=== PATIENT | male | born 1935 | race Two or more races ===

== ENCOUNTER 2018-03-17 18:17 | Inpatient (IN) | payer OTHER, MEDICAID ==
[2018-03-17 22:12] LABS: ADD MAN DIFF? NO
[2018-03-17 22:14] LABS: WHITE BLOOD COUNT 7.7 10^3/ul (4.8-10.8)
[2018-03-17 22:14] LABS: BASOPHIL # 0.1 10^3/ul (0.0-0.1); BASOPHILS % 0.6 % (0.0-2.0); EOSINOPHILS # 0.3 10^3/ul (0.0-0.5); EOSINOPHILS % 3.4 % (0.0-7.0); HEMATOCRIT 45.9 % (42.0-52.0); HEMOGLOBIN 14.7 g/dl (14.0-18.0); LYMPHOCYTES # 1.8 10^3/ul (0.8-2.9); LYMPHOCYTES % 23.5 % (15.0-51.0); MEAN CORPUSCULAR HEMOGLOBIN 26.4 pg (29.0-33.0); MEAN CORPUSCULAR VOLUME 82.6 fl (82.0-101.0); MEAN PLATELET VOLUME 9.8 fl (7.4-10.4); MONOCYTE # 0.8 10^3/ul (0.3-0.9); MONOCYTES % 10.1 % (0.0-11.0); NEUTROPHIL # 4.8 10^3/ul (1.6-7.5); NEUTROPHILS % 62.1 % (39.0-77.0); PLATELET COUNT 204 10^3/UL (140-415); RED BLOOD COUNT 5.56 10^6/ul (4.70-6.10); RED CELL DISTRIBUTION WIDTH 13.3 % (11.5-14.5)
[2018-03-17 22:27] LABS: AADO2 Arterial 32.1 mmHg (7.0-24.0); Allen Test ACCEPTAB; Arterial Base Excess 6.6 mmol/L (-3.0-3); Arterial Blood Gas Oxygen Sat 88.7 mmHG (95.0-100.0); Arterial Fraction of Oxyhgb 87.5 % (93.0-99.0); Arterial HCO3 33.2 mmol/L (22.0-26.0); Arterial MetHb 0.3 % (0.0-1.5); Arterial Total Hemglobin 15.8 g/dl (12.0-18.0); Arterial pCO2 54.4 mmhg (35-45); MODE ROOM AIR; Site Right Radial
[2018-03-17] MEDS: METHYLPREDNISOLONE 125 MG INJ IV (22:29)
[2018-03-17 22:33] LABS: ALANINE AMINOTRANSFERASE 13 IU/L (13-69); ALBUMIN 3.9 g/dl (3.3-4.9); ALKALINE PHOSPHATASE 127 IU/L (42-121); ANION GAP 9 (5-13); ASPARTATE AMINO TRANSFERASE 25 IU/L (15-46); BILIRUBIN,INDIRECT 0.4 mg/dl (0-1.1); BILIRUBIN,TOTAL 0.4 mg/dl (0.2-1.3); BLOOD UREA NITROGEN 26 mg/dl (7-20); CALCIUM 9.2 mg/dl (8.4-10.2); CARBON DIOXIDE 33 mmol/L (21-31); CHLORIDE 97 mmol/L (97-110); CREATININE 1.28 mg/dl (0.61-1.24); GLUCOSE 272 mg/dl (70-220); INR 0.91; LIPASE 84 U/L (23-300); POTASSIUM 4.5 mmol/L (3.5-5.1); PROTIME 12.3 Sec (11.9-14.9); SODIUM 139 mmol/L (135-144); TOTAL PROTEIN 7.8 g/dl (6.1-8.1)
[2018-03-17 22:34] LABS: PARTIAL THROMBOPLASTIN TIME 34.4 Sec (23.0-35.0)
[2018-03-17 22:44] LABS: B-TYPE NATRIURETIC PEPTIDE 239 PG/ML (0-450); TROPONIN-I < 0.012 ng/ml (0.000-0.120)
[2018-03-17] MEDS: ALBUTEROL 0.5% (NEB) 2.5 MG/0.5 ML AMP INH (22:44)
[2018-03-17] MEDS: IPRATROPIUM (NEB) 0.5 MG/2.5 ML AMP INH (22:45)
[2018-03-18] MEDS: ENALAPRILAT 1.25 MG INJ IV (00:13)
[2018-03-18 01:00] LABS: ADD UMIC YES; UR ASCORBIC ACID NEGATIVE (NEGATIVE); UR BACTERIA MODERATE /HPF (NONE SEEN); UR BILIRUBIN (Dip) NEGATIVE (NEGATIVE); UR BLOOD (Dip) NEGATIVE (NEGATIVE); UR CLARITY SLIGHTLY CLOUDY (CLEAR); UR COLOR YELLOW (YELLOW); UR GLUCOSE (Dip) NEGATIVE (NEGATIVE); UR KETONES (Dip) NEGATIVE (NEGATIVE); UR LEUKOCYTE ESTERASE (Dip) 1+ Leu/ul (NEGATIVE); UR NITRITE (Dip) NEGATIVE (NEGATIVE); UR RBC 2 /HPF (0-5); UR SPECIFIC GRAVITY (Dip) 1.015 (1.003-1.030); UR TOTAL PROTEIN (Dip) 2+ mg/dl (NEGATIVE); UR UROBILINOGEN (Dip) 2+ mg/dL (NEGATIVE); UR WBC 34 /HPF (0-5)
[2018-03-18] MEDS: hydrALAzine 20 MG INJ IV (03:54)
[2018-03-18] MEDS ORDERED: NACL 0.9% 3 ML SYG IV (04:00)
[2018-03-18] MEDS ORDERED: ALBUTEROL/IPRATROPIUM (NEB) 3 ML AMP HHN (04:00)
[2018-03-18] MEDS ORDERED: ONDANSETRON 4 MG INJ IV (04:00)
[2018-03-18 05:48] LABS: ABNORMAL IP MESSAGE 1; HEMATOCRIT 46.1 % (42.0-52.0); HEMOGLOBIN 14.7 g/dl (14.0-18.0); MEAN CORPUSCULAR HEMOGLOBIN 26.3 pg (29.0-33.0); MEAN CORPUSCULAR HGB CONC 31.9 g/dl (32.0-37.0); MEAN CORPUSCULAR VOLUME 82.5 fl (82.0-101.0); MEAN PLATELET VOLUME 9.6 fl (7.4-10.4); PLATELET COUNT 206 10^3/UL (140-415); POSITIVE DIFF @See below; RED BLOOD COUNT 5.59 10^6/ul (4.70-6.10)
[2018-03-18 05:48] LABS: WHITE BLOOD COUNT 7.7 10^3/ul (4.8-10.8)
[2018-03-18 05:58] LABS: ADD MAN DIFF? YES
[2018-03-18 06:27] LABS: ALANINE AMINOTRANSFERASE 12 IU/L (13-69); ALBUMIN 3.4 g/dl (3.3-4.9); ALBUMIN/GLOBULIN RATIO 0.89; ALKALINE PHOSPHATASE 138 IU/L (42-121); ANION GAP 16 (5-13); ASPARTATE AMINO TRANSFERASE 33 IU/L (15-46); BILIRUBIN,INDIRECT 0.3 mg/dl (0-1.1); BILIRUBIN,TOTAL 0.3 mg/dl (0.2-1.3); BLOOD UREA NITROGEN 27 mg/dl (7-20); CARBON DIOXIDE 27 mmol/L (21-31); CHLORIDE 97 mmol/L (97-110); CREATININE 1.04 mg/dl (0.61-1.24); MAGNESIUM 1.6 mg/dl (1.7-2.5); SODIUM 140 mmol/L (135-144); TOTAL PROTEIN 7.2 g/dl (6.1-8.1)
[2018-03-18 06:39] LABS: GLUCOSE 407 mg/dl (70-220)
[2018-03-18 07:25] LABS: ANISOCYTOSIS 1+ (0-0); BAND NEUTROPHILS #M 0.4 10^3/ul (0.0-0.6); BAND NEUTROPHILS % (M) 6 % (0-4); BASOPHILS % (M) 1 % (0-2); LYMPHOCYTES #M 0.2 10^3/ul (0.8-2.9); LYMPHOCYTES % (M) 3 % (15-51); MICROCYTOSIS 1+ (0-0); MONOCYTES % (M) 1 % (0-11); PLATELET ESTIMATE NORMAL; POLYCHROMASIA 1+ (0-0); REACTIVE LYMPHOCYTES% (M) 1 % (0-0); SEG NEUT #M 6.8 10^3/ul (1.6-7.5); SEGMENTED NEUTROPHILS (M) % 88 % (39-77); SMUDGE%M 19 % (0-0)
[2018-03-18] MEDS ORDERED: HEPARIN 5,000 UNIT/0.5 ML VIAL (08:13)
[2018-03-18] MEDS: METHYLPREDNISOLONE 125 MG INJ IV (08:20)
[2018-03-18] MEDS: AMLODIPINE 10 MG TAB PO (08:21)
[2018-03-18] MEDS: MOMETASONE 0.24 GM INHALER INH ×2 (08:21→20:45)
[2018-03-18] MEDS: HEPARIN 5,000 UNIT/1 ML VIAL SC (08:25)
[2018-03-18] MEDS: INSULIN ASPART [NOVOLOG] 3 ML PEN SC ×4 (08:26→20:44)
[2018-03-18] MEDS ORDERED: ENOXAPARIN 100 MG/ML SYG SC (09:30)
[2018-03-18] MEDS: MAGNESIUM SULFATE 2 GM/50 ML 50 ML IVPB (09:37)
[2018-03-18] MEDS: ASPIRIN 325 MG TAB PO (09:37)
[2018-03-18] MEDS ORDERED: ENALAPRILAT 1.25 MG INJ IV (12:00)
[2018-03-18] MEDS: LABETALOL 100 MG TAB PO ×2 (12:26→20:27)
[2018-03-18] MEDS: CLONIDINE 0.2 MG/24 HR PATCH TRANSDERM (12:27)
[2018-03-18] MEDS ORDERED: GLUCOSE GEL 15 GRAM TUBE PO ×2 (12:30)
[2018-03-18] MEDS ORDERED: DEXTROSE 50% 50 ML SYRINGE IV ×2 (12:30)
[2018-03-18] MEDS ORDERED: GLUCOSE GEL 15 GRAM TUBE BUCCAL (12:30)
[2018-03-18] MEDS ORDERED: GLUCAGON 1 MG INJ IM (12:30)
[2018-03-18] MEDS: IPRATROPIUM (HFA) 12.9 GM INHALER INH ×3 (14:00→20:00)
[2018-03-18] MEDS: IOHEXOL 300MG/ML 150 ML BTL (17:09)
[2018-03-18] MEDS: SOD CHLORIDE 0.9% 100 ML (17:09)
[2018-03-18] MEDS: ATORVASTATIN 20 MG TAB PO (20:27)
[2018-03-18] MEDS: INSULIN GLARGINE [LANTus] (100 UNITS/ML) SYG SC (20:45)
[2018-03-18] MEDS: ENOXAPARIN 100 MG/ML SYG SC (20:45)
[2018-03-19] MEDS: LORAZEPAM 2 MG INJ IV (00:11)
[2018-03-19] MEDS ORDERED: DIPHENHYDRAMINE 50 MG INJ (00:37)
[2018-03-19] MEDS: HALOPERIDOL 5 MG INJ IM (00:44)
[2018-03-19] MEDS: DIPHENHYDRAMINE 50 MG INJ IV (01:03)
[2018-03-19] MEDS: IPRATROPIUM (HFA) 12.9 GM INHALER INH ×4 (01:59→20:00)
[2018-03-19] MEDS: ACCU-CHEK XX (02:19)
[2018-03-19] MEDS: INSULIN ASPART [NOVOLOG] 3 ML PEN SC ×5 (02:19→21:30)
[2018-03-19 06:18] LABS: WHITE BLOOD COUNT 16.1 10^3/ul (4.8-10.8)
[2018-03-19 06:18] LABS: ADD MAN DIFF? NO; BASOPHILS % 0.1 % (0.0-2.0); EOSINOPHILS % 0.1 % (0.0-7.0); HEMATOCRIT 42.2 % (42.0-52.0); HEMOGLOBIN 13.8 g/dl (14.0-18.0); LYMPHOCYTES % 6.5 % (15.0-51.0); MEAN CORPUSCULAR HEMOGLOBIN 26.7 pg (29.0-33.0); MEAN CORPUSCULAR HGB CONC 32.7 g/dl (32.0-37.0); MEAN CORPUSCULAR VOLUME 81.6 fl (82.0-101.0); MEAN PLATELET VOLUME 9.9 fl (7.4-10.4); MONOCYTE # 1.1 10^3/ul (0.3-0.9); MONOCYTES % 6.6 % (0.0-11.0); NEUTROPHIL # 13.9 10^3/ul (1.6-7.5); NEUTROPHILS % 86.1 % (39.0-77.0); PLATELET COUNT 218 10^3/UL (140-415); RED BLOOD COUNT 5.17 10^6/ul (4.70-6.10); RED CELL DISTRIBUTION WIDTH 13.4 % (11.5-14.5)
[2018-03-19 06:34] LABS: HEMOGLOBIN A1C 8.6 % (0-5.9)
[2018-03-19 06:36] LABS: INR 0.99; PROTIME 13.2 Sec (11.9-14.9)
[2018-03-19 06:54] LABS: ALANINE AMINOTRANSFERASE 20 IU/L (13-69); ALBUMIN 3.1 g/dl (3.3-4.9); ALBUMIN/GLOBULIN RATIO 0.93; ALKALINE PHOSPHATASE 109 IU/L (42-121); ANION GAP 11 (5-13); ASPARTATE AMINO TRANSFERASE 30 IU/L (15-46); BILIRUBIN,INDIRECT 0.1 mg/dl (0-1.1); BILIRUBIN,TOTAL 0.1 mg/dl (0.2-1.3); BLOOD UREA NITROGEN 39 mg/dl (7-20); CALCIUM 9.1 mg/dl (8.4-10.2); CARBON DIOXIDE 29 mmol/L (21-31); CHLORIDE 101 mmol/L (97-110); CREATININE 1.15 mg/dl (0.61-1.24); GLUCOSE 297 mg/dl (70-220); POTASSIUM 4.4 mmol/L (3.5-5.1); SODIUM 141 mmol/L (135-144); TOTAL PROTEIN 6.4 g/dl (6.1-8.1)
[2018-03-19 07:10] LABS: PHOSPHORUS 3.5 mg/dl (2.5-4.9)
[2018-03-19 07:10] LABS: MAGNESIUM 2.2 mg/dl (1.7-2.5)
[2018-03-19] MEDS: METHYLPREDNISOLONE 125 MG INJ IV (08:47)
[2018-03-19] MEDS: ASPIRIN 325 MG TAB PO (08:48)
[2018-03-19] MEDS: LABETALOL 100 MG TAB PO ×2 (08:49→21:22)
[2018-03-19] MEDS: MOMETASONE 0.24 GM INHALER INH ×2 (08:51→21:22)
[2018-03-19] MEDS: INSULIN GLARGINE [LANTus] (100 UNITS/ML) SYG SC ×2 (09:19→21:26)
[2018-03-19] MEDS: ENOXAPARIN 100 MG/ML SYG SC (09:19)
[2018-03-19] MEDS ORDERED: METHYLPREDNISOLONE (MEDROL) DOSE PACK PO (14:30)
[2018-03-19] MEDS: LEVOFLOXACIN 500 MG TAB PO (17:02)
[2018-03-19] MEDS: METHYLPREDNISOLONE 4 MG TAB PO (17:03)
[2018-03-19] MEDS: SENNA/DOCUSATE NA (8.6MG/50MG) TAB PO (17:03)
[2018-03-19] MEDS: ATORVASTATIN 20 MG TAB PO (21:21)
[2018-03-20] MEDS: ACCU-CHEK XX (02:00)
[2018-03-20] MEDS: IPRATROPIUM (HFA) 12.9 GM INHALER INH ×4 (02:00→20:16)
[2018-03-20] MEDS: LEVOFLOXACIN 500 MG TAB PO (06:12)
[2018-03-20] MEDS: METHYLPREDNISOLONE 4 MG TAB PO ×4 (06:13→20:30)
[2018-03-20 06:28] LABS: ADD MAN DIFF? NO
[2018-03-20 06:33] LABS: BASOPHILS % 0.1 % (0.0-2.0); HEMATOCRIT 41.9 % (42.0-52.0); HEMOGLOBIN 13.7 g/dl (14.0-18.0); LYMPHOCYTES # 0.9 10^3/ul (0.8-2.9); LYMPHOCYTES % 5.4 % (15.0-51.0); MEAN CORPUSCULAR HGB CONC 32.7 g/dl (32.0-37.0); MEAN CORPUSCULAR VOLUME 82.5 fl (82.0-101.0); MEAN PLATELET VOLUME 10.2 fl (7.4-10.4); MONOCYTE # 0.7 10^3/ul (0.3-0.9); MONOCYTES % 4.3 % (0.0-11.0); NEUTROPHIL # 14.4 10^3/ul (1.6-7.5); NEUTROPHILS % 89.6 % (39.0-77.0); PLATELET COUNT 231 10^3/UL (140-415); RED BLOOD COUNT 5.08 10^6/ul (4.70-6.10); RED CELL DISTRIBUTION WIDTH 13.6 % (11.5-14.5)
[2018-03-20 07:15] LABS: ALANINE AMINOTRANSFERASE 17 IU/L (13-69); ALBUMIN/GLOBULIN RATIO 0.88; ALKALINE PHOSPHATASE 90 IU/L (42-121); ANION GAP 8 (5-13); ASPARTATE AMINO TRANSFERASE 25 IU/L (15-46); BILIRUBIN,INDIRECT 0.1 mg/dl (0-1.1); BILIRUBIN,TOTAL 0.1 mg/dl (0.2-1.3); BLOOD UREA NITROGEN 47 mg/dl (7-20); CALCIUM 9.1 mg/dl (8.4-10.2); CARBON DIOXIDE 32 mmol/L (21-31); CHLORIDE 101 mmol/L (97-110); CREATININE 1.05 mg/dl (0.61-1.24); GLUCOSE 190 mg/dl (70-220); POTASSIUM 4.7 mmol/L (3.5-5.1); SODIUM 141 mmol/L (135-144); TOTAL PROTEIN 6.4 g/dl (6.1-8.1)
[2018-03-20] MEDS: INSULIN GLARGINE [LANTus] (100 UNITS/ML) SYG SC ×3 (08:07→20:34)
[2018-03-20] MEDS: INSULIN ASPART [NOVOLOG] 3 ML PEN SC ×4 (08:08→20:15)
[2018-03-20] MEDS: ASPIRIN 325 MG TAB PO (09:15)
[2018-03-20] MEDS: LABETALOL 100 MG TAB PO ×2 (09:15→20:15)
[2018-03-20] MEDS: SENNA/DOCUSATE NA (8.6MG/50MG) TAB PO (09:15)
[2018-03-20] MEDS: MOMETASONE 0.24 GM INHALER INH ×2 (09:17→20:16)
[2018-03-20] MEDS: ENOXAPARIN 30 MG/0.3 ML SYG SC (09:22)
[2018-03-20] MEDS: ATORVASTATIN 20 MG TAB PO (20:15)
[2018-03-21] MEDS: ACCU-CHEK XX (02:00)
[2018-03-21] MEDS: IPRATROPIUM (HFA) 12.9 GM INHALER INH ×3 (02:00→17:48)
[2018-03-21] MEDS: LEVOFLOXACIN 500 MG TAB PO (06:18)
[2018-03-21] MEDS: METHYLPREDNISOLONE 4 MG TAB PO ×4 (06:18→20:46)
[2018-03-21] MEDS: SENNA/DOCUSATE NA (8.6MG/50MG) TAB PO (08:02)
[2018-03-21] MEDS: ASPIRIN 325 MG TAB PO (08:02)
[2018-03-21] MEDS: MOMETASONE 0.24 GM INHALER INH ×2 (08:03→20:46)
[2018-03-21] MEDS: LABETALOL 100 MG TAB PO ×2 (08:03→20:47)
[2018-03-21] MEDS: ENOXAPARIN 30 MG/0.3 ML SYG SC (08:10)
[2018-03-21] MEDS: INSULIN ASPART [NOVOLOG] 3 ML PEN SC ×4 (08:10→20:49)
[2018-03-21] MEDS: ATORVASTATIN 20 MG TAB PO (20:46)
[2018-03-21] MEDS: INSULIN GLARGINE [LANTus] (100 UNITS/ML) SYG SC (20:49)
[2018-03-22] MEDS: ACCU-CHEK XX (01:48)
[2018-03-22] MEDS: IPRATROPIUM (HFA) 12.9 GM INHALER INH ×5 (02:00→22:06)
[2018-03-22 06:06] LABS: ADD MAN DIFF? NO
[2018-03-22] MEDS: METHYLPREDNISOLONE 4 MG TAB PO ×3 (06:10→22:04)
[2018-03-22] MEDS: LEVOFLOXACIN 500 MG TAB PO (06:10)
[2018-03-22 06:15] LABS: WHITE BLOOD COUNT 9.1 10^3/ul (4.8-10.8)
[2018-03-22 06:15] LABS: BASOPHILS % 0.1 % (0.0-2.0); EOSINOPHILS # 0.2 10^3/ul (0.0-0.5); EOSINOPHILS % 1.7 % (0.0-7.0); HEMATOCRIT 44.7 % (42.0-52.0); HEMOGLOBIN 14.6 g/dl (14.0-18.0); LYMPHOCYTES # 1.5 10^3/ul (0.8-2.9); LYMPHOCYTES % 16.3 % (15.0-51.0); MEAN CORPUSCULAR HGB CONC 32.7 g/dl (32.0-37.0); MEAN CORPUSCULAR VOLUME 82.8 fl (82.0-101.0); MONOCYTE # 0.9 10^3/ul (0.3-0.9); MONOCYTES % 9.4 % (0.0-11.0); NEUTROPHIL # 6.5 10^3/ul (1.6-7.5); NEUTROPHILS % 71.9 % (39.0-77.0); PLATELET COUNT 201 10^3/UL (140-415)
[2018-03-22 06:41] LABS: ANION GAP 8 (5-13); BLOOD UREA NITROGEN 37 mg/dl (7-20); CALCIUM 9.1 mg/dl (8.4-10.2); CARBON DIOXIDE 32 mmol/L (21-31); CHLORIDE 99 mmol/L (97-110); CREATININE 1.06 mg/dl (0.61-1.24); GLUCOSE 150 mg/dl (70-220); POTASSIUM 4.4 mmol/L (3.5-5.1); SODIUM 139 mmol/L (135-144)
[2018-03-22 06:55] LABS: PHOSPHORUS 4.8 mg/dl (2.5-4.9)
[2018-03-22 06:55] LABS: MAGNESIUM 2.1 mg/dl (1.7-2.5)
[2018-03-22] MEDS: INSULIN ASPART [NOVOLOG] 3 ML PEN SC ×4 (07:57→21:00)
[2018-03-22] MEDS: MOMETASONE 0.24 GM INHALER INH ×2 (08:12→22:06)
[2018-03-22] MEDS: ASPIRIN 325 MG TAB PO (08:12)
[2018-03-22] MEDS: LABETALOL 100 MG TAB PO ×2 (08:13→22:04)
[2018-03-22] MEDS: SENNA/DOCUSATE NA (8.6MG/50MG) TAB PO (08:13)
[2018-03-22] MEDS: ENOXAPARIN 30 MG/0.3 ML SYG SC (08:21)
[2018-03-22] MEDS: INSULIN GLARGINE [LANTus] (100 UNITS/ML) SYG SC (20:00)
[2018-03-22] MEDS: ATORVASTATIN 20 MG TAB PO (22:04)
[2018-03-23] MEDS: ACCU-CHEK XX (02:00)
[2018-03-23] MEDS: IPRATROPIUM (HFA) 12.9 GM INHALER INH ×4 (02:00→20:51)
[2018-03-23] MEDS: LEVOFLOXACIN 500 MG TAB PO (06:31)
[2018-03-23] MEDS: METHYLPREDNISOLONE 4 MG TAB PO ×2 (06:31→20:51)
[2018-03-23] MEDS: INSULIN ASPART [NOVOLOG] 3 ML PEN SC ×4 (07:53→21:07)
[2018-03-23] MEDS: MOMETASONE 0.24 GM INHALER INH ×2 (08:18→20:50)
[2018-03-23] MEDS: SENNA/DOCUSATE NA (8.6MG/50MG) TAB PO (08:19)
[2018-03-23] MEDS: ASPIRIN 325 MG TAB PO (08:19)
[2018-03-23] MEDS: LABETALOL 100 MG TAB PO ×2 (08:20→20:53)
[2018-03-23] MEDS: ENOXAPARIN 30 MG/0.3 ML SYG SC (08:26)
[2018-03-23] MEDS: BISACODYL (EC) 5 MG TAB PO (19:03)
[2018-03-23] MEDS: MAGNESIUM HYDROXIDE 30ML CUP PO (19:03)
[2018-03-23] MEDS: ATORVASTATIN 20 MG TAB PO (20:51)
[2018-03-23] MEDS: INSULIN GLARGINE [LANTus] (100 UNITS/ML) SYG SC (21:07)
[2018-03-24] MEDS: ACCU-CHEK XX (02:00)
[2018-03-24] MEDS: IPRATROPIUM (HFA) 12.9 GM INHALER INH ×4 (02:12→20:09)
[2018-03-24] MEDS: LEVOFLOXACIN 500 MG TAB PO (05:43)
[2018-03-24 06:21] LABS: ADD MAN DIFF? NO
[2018-03-24 06:33] LABS: WHITE BLOOD COUNT 9.5 10^3/ul (4.8-10.8)
[2018-03-24 06:33] LABS: BASOPHILS % 0.2 % (0.0-2.0); EOSINOPHILS # 0.3 10^3/ul (0.0-0.5); HEMATOCRIT 46.5 % (42.0-52.0); HEMOGLOBIN 14.8 g/dl (14.0-18.0); LYMPHOCYTES # 2.1 10^3/ul (0.8-2.9); LYMPHOCYTES % 21.7 % (15.0-51.0); MEAN CORPUSCULAR HEMOGLOBIN 26.5 pg (29.0-33.0); MEAN CORPUSCULAR HGB CONC 31.8 g/dl (32.0-37.0); MEAN CORPUSCULAR VOLUME 83.3 fl (82.0-101.0); MEAN PLATELET VOLUME 9.9 fl (7.4-10.4); MONOCYTES % 10.6 % (0.0-11.0); NEUTROPHILS % 63.3 % (39.0-77.0); PLATELET COUNT 211 10^3/UL (140-415); RED BLOOD COUNT 5.58 10^6/ul (4.70-6.10); RED CELL DISTRIBUTION WIDTH 13.8 % (11.5-14.5)
[2018-03-24 06:51] LABS: ANION GAP 9 (5-13); BLOOD UREA NITROGEN 41 mg/dl (7-20); CALCIUM 8.7 mg/dl (8.4-10.2); CARBON DIOXIDE 31 mmol/L (21-31); CHLORIDE 101 mmol/L (97-110); CREATININE 1.11 mg/dl (0.61-1.24); GLUCOSE 98 mg/dl (70-220); MAGNESIUM 2.2 mg/dl (1.7-2.5); PHOSPHORUS 4.4 mg/dl (2.5-4.9); POTASSIUM 3.8 mmol/L (3.5-5.1); SODIUM 141 mmol/L (135-144)
[2018-03-24] MEDS: INSULIN ASPART [NOVOLOG] 3 ML PEN SC ×4 (08:00→21:00)
[2018-03-24] MEDS: METHYLPREDNISOLONE 4 MG TAB PO (08:59)
[2018-03-24] MEDS: ASPIRIN 325 MG TAB PO (09:00)
[2018-03-24] MEDS: LABETALOL 100 MG TAB PO ×2 (09:00→21:28)
[2018-03-24] MEDS: SENNA/DOCUSATE NA (8.6MG/50MG) TAB PO (09:00)
[2018-03-24] MEDS: MOMETASONE 0.24 GM INHALER INH ×2 (09:01→21:31)
[2018-03-24] MEDS: ENOXAPARIN 30 MG/0.3 ML SYG SC (09:03)
[2018-03-24] MEDS: INSULIN GLARGINE [LANTus] (100 UNITS/ML) SYG SC (20:08)
[2018-03-24] MEDS: ATORVASTATIN 20 MG TAB PO (21:28)
[2018-03-25] MEDS: ACCU-CHEK XX (02:00)
[2018-03-25] MEDS: IPRATROPIUM (HFA) 12.9 GM INHALER INH ×4 (02:27→20:05)
[2018-03-25] MEDS: LEVOFLOXACIN 500 MG TAB PO (05:41)
[2018-03-25] MEDS: INSULIN ASPART [NOVOLOG] 3 ML PEN SC ×4 (08:00→21:00)
[2018-03-25] MEDS: MOMETASONE 0.24 GM INHALER INH ×2 (08:34→21:00)
[2018-03-25] MEDS: ASPIRIN 325 MG TAB PO (08:35)
[2018-03-25] MEDS: SENNA/DOCUSATE NA (8.6MG/50MG) TAB PO (08:35)
[2018-03-25] MEDS: ENOXAPARIN 30 MG/0.3 ML SYG SC (08:37)
[2018-03-25] MEDS: ACETAMINOPHEN 325 MG TAB PO (08:42)
[2018-03-25] MEDS: LABETALOL 100 MG TAB PO ×2 (08:42→21:01)
[2018-03-25] MEDS: CLONIDINE 0.2 MG/24 HR PATCH TRANSDERM (12:07)
[2018-03-25] MEDS: INSULIN GLARGINE [LANTus] (100 UNITS/ML) SYG SC (20:07)
[2018-03-25] MEDS: ATORVASTATIN 20 MG TAB PO (21:00)
[2018-03-26] MEDS: ACCU-CHEK XX (02:00)
[2018-03-26] MEDS: IPRATROPIUM (HFA) 12.9 GM INHALER INH ×4 (02:07→20:21)
[2018-03-26] MEDS: LEVOFLOXACIN 500 MG TAB PO (06:35)
[2018-03-26] MEDS: INSULIN ASPART [NOVOLOG] 3 ML PEN SC ×4 (08:00→20:23)
[2018-03-26] MEDS: MOMETASONE 0.24 GM INHALER INH ×2 (09:00→20:21)
[2018-03-26] MEDS: ENOXAPARIN 30 MG/0.3 ML SYG SC ×2 (09:00→09:33)
[2018-03-26] MEDS: SENNA/DOCUSATE NA (8.6MG/50MG) TAB PO (09:32)
[2018-03-26] MEDS: ASPIRIN 325 MG TAB PO (09:32)
[2018-03-26] MEDS: LABETALOL 100 MG TAB PO ×2 (09:32→20:20)
[2018-03-26 15:08] LABS: AADO2 Arterial 45.8 mmHg (7.0-24.0); Arterial Base Excess 2.4 mmol/L (-3.0-3); Arterial Blood Gas Oxygen Sat 87.2 mmHG (95.0-100.0); Arterial COHb 1.1 % (0.0-3.0); Arterial Fraction of Oxyhgb 86.1 % (93.0-99.0); Arterial HCO3 27.9 mmol/L (22.0-26.0); Arterial MetHb 0.2 % (0.0-1.5); Arterial Total Hemglobin 15.2 g/dl (12.0-18.0); MODE ROOM AIR; Site Right Brachial
[2018-03-26] MEDS: ATORVASTATIN 20 MG TAB PO (20:20)
[2018-03-26] MEDS: INSULIN GLARGINE [LANTus] (100 UNITS/ML) SYG SC (20:38)
== END 2018-03-26 21:00 | disposition home or self-care (01) | DRG 190 ==
LOC: 6WM 23:27 → PP2 03-24 00:09 → E/R 18:17
DX: J44.1 Chronic obstructive pulmonary disease with (acute) exacerbation (principal); J96.01 Acute respiratory failure with hypoxia; J96.02 Acute respiratory failure with hypercapnia; N17.9 Acute kidney failure, unspecified; T82.330A Leakage of aortic (bifurcation) graft (replacement), initial encounter; G45.9 Transient cerebral ischemic attack, unspecified; N30.00 Acute cystitis without hematuria; E11.22 Type 2 diabetes mellitus with diabetic chronic kidney disease; E11.65 Type 2 diabetes mellitus with hyperglycemia; E88.81 Metabolic syndrome and other insulin resistance; E86.0 Dehydration; E83.42 Hypomagnesemia; I12.9 Hypertensive chronic kidney disease with stage 1 through stage 4 chronic kidney disease, or unspecified chronic kidney disease; N18.9 Chronic kidney disease, unspecified; E03.9 Hypothyroidism, unspecified; E78.5 Hyperlipidemia, unspecified; I70.202 Unspecified atherosclerosis of native arteries of extremities, left leg; I16.0 Hypertensive urgency; G31.84 Mild cognitive impairment of uncertain or unknown etiology; I71.4 Abdominal aortic aneurysm, without rupture; I77.1 Stricture of artery; B96.20 Unspecified Escherichia coli [E. coli] as the cause of diseases classified elsewhere; Z79.4 Long term (current) use of insulin; Z79.82 Long term (current) use of aspirin; Z87.891 Personal history of nicotine dependence; Z86.73 Personal history of transient ischemic attack (TIA), and cerebral infarction without residual deficits
CPT/HCPCS: 36415; 36600; 70450; 70551; 71045; 75635; 76775; 80048; 80053; 81001; 82803; 82962; 83036; 83690; 83735; 83880; 84100; 84443; 84484; 85025; 85610; 85730; 87086; 92507; 92526; 92610; 93005; 93306; 93880; 93923; 93970; 94644; 96374; 97110; 97116; 97162; 97530; 99285-25